=== PATIENT | male | born 1995 | race African-American/Black ===

== ENCOUNTER 2022-05-25 08:43 | Emergency (ER) | payer OTHER ==
[~2022-05-25] VITALS: Ht 180.3 cm; Wt 115.4 kg
[2022-05-25] MEDS ORDERED: ANUS2.5C2 TOP (11:53)
[2022-05-25] MEDS ORDERED: COLA100C5 PO (11:54)
[2022-05-25] MEDS ORDERED: MIRA3350 PO (11:54)
[2022-05-25 12:02] VITALS: BP 132/81
== END 2022-05-25 12:06 | disposition home or self-care (01) ==
LOC: M ED 08:43
DX: K64.4 Residual hemorrhoidal skin tags (principal); Z79.899 Other long term (current) drug therapy

== ENCOUNTER 2024-03-06 11:25 | Emergency (ER) | payer OTHER ==
[~2024-03-06] VITALS: Ht 182.9 cm; Wt 102.3 kg
[~2024-03-06 11:25] MED LIST: ANUS2.5C2 TOP; COLA100C5 PO; MIRA3350 PO
[2024-03-06 15:53] VITALS: BP 134/70; TEMP 97.3; O2SAT 99
== END 2024-03-06 19:00 | disposition left against medical advice (07) ==
LOC: M ED 11:25
DX: Z53.21 Procedure and treatment not carried out due to patient leaving prior to being seen by health care provider (principal)

== ENCOUNTER 2024-07-07 07:07 | Day surgery (SDC) | payer OTHER ==
[~2024-07-07] VITALS: Ht 185.4 cm; Wt 108.9 kg
[~2024-07-07 07:07] MED LIST changes: +CLA1000C PO
[2024-07-07] MEDS ORDERED: LR 1,000 ML IV SCH ×2 (07:55→12:10)
[2024-07-07] MEDS ORDERED: propofoL 200 MG/20 ML VIAL As Ordered ONE (07:59)
[2024-07-07] MEDS ORDERED: LIDOCAINE 2% 100MG/5ML SDV (FOR ANES.) As Ordered ONE (07:59)
[2024-07-07] MEDS ORDERED: ONDANSETRON 4MG 2ML VIAL As Ordered ONE (07:59)
[2024-07-07] MEDS ORDERED: MIDAZOLAM INJ 2MG/2ML VIAL As Ordered ONE (07:59)
[2024-07-07] MEDS ORDERED: fentaNYL 100 MCG/2 ML INJECTION As Ordered ONE (07:59)
[2024-07-07] MEDS ORDERED: ACETAMINOPHEN 1000MG 100ML IV BAG As Ordered ONE (08:00)
[2024-07-07] MEDS: MIDAZOLAM INJ 2MG/2ML VIAL IV PRN (08:59)
[2024-07-07] MEDS: fentaNYL 100 MCG/2 ML INJECTION IV PRN (08:59)
[2024-07-07] MEDS: LIDOCAINE 1% SDV 5ML VIAL PN ONE (09:03)
[2024-07-07] MEDS: ROPIvacaine 0.5% 30ML VIAL PN ONE (09:03)
[2024-07-07] MEDS: ceFAZolin SOD 2 GM in IV 1 EA IV ONE (10:16)
[2024-07-07] MEDS ORDERED: dexmedeTOMIDine (4MCG/ML)200MCG/50ML BTL (PRECEDEX) As Ordered ONE (10:19)
[2024-07-07] MEDS: TRANEXAMIC ACID 100 MG/ML 10ML VIAL As Ordered ONE (10:28)
[2024-07-07] MEDS ORDERED: KETOROLAC 60MG 2ML VIAL As Ordered ONE (10:29)
[2024-07-07] MEDS ORDERED: oxyCODONE 5MG TAB PO PRN (12:10)
[2024-07-07] MEDS ORDERED: HYDROMORPHONE HCL 0.5 MG/ 0.5 ML SYRINGE IV PRN (12:10)
[2024-07-07] MEDS ORDERED: ONDANSETRON 4MG 2ML VIAL IV PRN (12:10)
[2024-07-07] MEDS ORDERED: fentaNYL 100 MCG/2 ML INJECTION IV PRN (12:10)
[2024-07-07 14:15] VITALS: BP 132/67; TEMP 97; O2SAT 99
== END 2024-07-07 14:30 | disposition home or self-care (01) ==
LOC: M SDC 07:07
PROVIDERS: ATTEND Orthopaedic Surgery
DX: M25.371 Other instability, right ankle (principal)
CPT/HCPCS: 27698; 64445; 64447; 76000; C1713; J0131; J0690; J1100; J1885; J2250; J2405; J3010